=== PATIENT | male | born 1950 | race Caucasian/White ===

== ENCOUNTER 2017-01-04 16:22 | Emergency (ER) | payer MEDICAID ==
--- NOTE | 2017-01-04 17:14 | ED Physician Chart ---
Chief Complaint/HPI - Patient Information Date Seen:: 01/04/17 Time Seen:: 17:00 Chief Complaint:: right foot and right thigh lesions History of Present Illness:: Patient noted areas of redness on the right foot and the right posterior thigh 5 days ago. No chills or fever. Allergies:: Allergies Allergy/AdvReac Type Severity Reaction Status Date / Time Penicillins Allergy Verified 01/04/17 16:59 Vitals:: Vital Signs - 8 hr 01/04/17 16:52 Temp 98.5 F HR 65 RR 16 BP 114/78 O2 Sat % 98 Historian:: Patient Review:: Nurse's Note Reviewed Review of Systems - Review of Systems General/Constitutional: No fever, No chills Skin: Skin lesions Head: No headache Eyes: No loss of vision ENT: No earache Neck: No neck pain Cardio Vascular: No chest pain, No palpitations Pulmonary: No SOB GI: No nausea, No vomiting G/U: No dysuria Musculoskeletal: No bone or joint pain Endocrine: No polyuria Psychiatric: No prior psych history, No depression Hematopoietic: No bruising, No lymphadenopathy Allergic/Immuno: No urticaria Neurological: No syncope, No headache Past Medical History - Past Medical History Past Medical History: No significant medical hx Family History: Diabetes Melitus, Cancer, Other (grandson and granddaughter have asthma) Social History: Non Smoker, No Alcohol Surgical History: None Psychiatricy History: None Medication: Reviewed Physical Exam - Physical Examination General/Constitutional: Well-developed, well-nourished, Alert, No distress Head: Atraumatic Eyes: Lids, conjuctiva normal, PERRL Skin: No ecchymosis Other Skin comments:: 1 cm of erythema right foot just distal to lateral malleolus. 2 cm of erythema posterior right thigh ENMT: External ears, nose nl Neck: No nuchal rigidity Respiratory: Nl effort/Exclusion, Clear to Auscultation, No Wheeze/Rhonchi/Rales Cardio Vascular: RRR GI: No tenderness/rebounding/guarding, No organomegaly, No hernia : No CVA tenderness Extremities: Normal digits & nails Neuro/Psych: Alert/oriented Misc: Normal back ED Septic Shock - . Is Septic Shock (SBP<90, OR Lactate>4 mmol\L) present?: No - <6hrs of presentation: Vital Signs: Vital Signs - 8 hr 01/04/17 16:52 Temp 98.5 F HR 65 RR 16 BP 114/78 O2 Sat % 98 Reassessment (Disposition) - Reassessment Reassessment Condition:: Unchanged - Diagnosis Diagnosis:: Infected insect or spider bites right foot and right side - Aftercare/Follow up Instructions Medication Prescribed:: Prescription for Bactrim DS No. 20 to take one twice a day - Patient Disposition Discharge/Transfer:: Home Condition at Disposition:: Stable, Unchanged ED Discharge Plan - Patient Disposition Prescriptions: Sulfamethoxazole/TMP [Bactrim Ds] 1 tab PO BID #20 tab Instructions: Cellulitis, [id number] Additional Instructions: TOLERATED.
== END 2017-01-04 17:27 | disposition home or self-care (01) ==
LOC: ER 16:22
DX: T63.301A Toxic effect of unspecified spider venom, accidental (unintentional), initial encounter (principal); Z88.0 Allergy status to penicillin; Y92.89 Other specified places as the place of occurrence of the external cause
CPT/HCPCS: Z7502

== ENCOUNTER 2017-01-14 12:31 | Emergency (ER) | payer MEDICAID ==
--- NOTE | 2017-01-14 12:51 | ED Physician Chart ---
Chief Complaint/HPI - Patient Information Date Seen:: 01/14/17 Time Seen:: 12:40 Chief Complaint:: Redness in R forearm since last evening. History of Present Illness:: As above. No fever. Pt states that the affected area has been pruritc, and he has been scratching it. Taking po well without N/V/D. No lightheadedness or dyspnea. Pt does not recall any usual contact with any animals, plants, chemicals or potential allergens. Allergies:: Allergies Allergy/AdvReac Type Severity Reaction Status Date / Time Penicillins Allergy Verified 01/04/17 16:59 Vitals:: see Nurse Note. Historian:: Patient Family MD/PCP:: Edison Small. LMP:: N/A Review:: Nurse's Note Reviewed Review of Systems - Review of Systems General/Constitutional: No fever, No chills, No weight loss, No weakness, No edema, No loss of appetite Skin: Rash (see HPI.), No bruising Head: No headache, No light-headedness Eyes: No loss of vision, No pain ENT: No sore throat Neck: No neck pain, No swelling Cardio Vascular: No chest pain, No palpitations Pulmonary: No SOB, No cough, No wheezing GI: No nausea, No vomiting, No diarrhea, No pain Musculoskeletal: No bone or joint pain, No back pain, No muscle pain Endocrine: No polyuria, No polydipsia Psychiatric: No prior psych history Hematopoietic: No bruising, No lymphadenopathy Allergic/Immuno: Urticaria Neurological: No syncope, No focal symptoms, No weakness, No paresthesia, No headache, No dizziness, No confusion, No vertigo Past Medical History - Past Medical History Past Medical History: No significant medical hx Family History: Diabetes Melitus (mother), Cancer (mother) Social History: Non Smoker, No Alcohol, No Drug Use, , Other (lives with his .) Employment:: Retired Surgical History: other (R knee surgery about 32 y/a.) Psychiatricy History: None Medication: Reviewed Family Medical History - Family Member Mother Hx Family Cancer: No Hx Family Congestive Heart Failure: No Hx Family Hypertension: No Hx Family Diabetes: No Hx Family Seizures: No Hx Family Dementia: No Physical Exam - Physical Examination General/Constitutional: Awake, Well-developed, well-nourished, Alert, No distress, GCS 15, Non-toxic appearing, Ambulatory Other Gen/Cons comments:: Breathes comfortably Head: Atraumatic Eyes: Lids, conjuctiva normal, PERRL, EOMI Skin: No ecchymosis, Well hydrated, No lymphadenopathy Other Skin comments:: R forearm mid dorsal aspect has an area of about 5 x 8 cm patchy erythema. No open wound, red streaking, crepitus or swelling. No unusual warmth. RUE has FROM of all joints. No detectable motor/sensory/vascular deficit. Good distal pulse. ENMT: External ears, nose nl, Nasal exam nl, Oropharynx nl Neck: Nontender, Full ROM w/o pain, No nuchal rigidity, No mass, No stridor Respiratory: Nl effort/Exclusion, Clear to Auscultation, No Wheeze/Rhonchi/Rales Cardio Vascular: RRR, No murmur, gallop, rubs GI: No tenderness/rebounding/guarding, No organomegaly, Normal BS's, Nondistended Other GI comments:: Abdomen is soft. Other Extremities comments:: See Skin exam above. Neuro/Psych: Alert/oriented (oriented x 3), Judgement/insight normal, Mood normal, Normal gait, No focal deficits ED Septic Shock - . Is Septic Shock (SBP<90, OR Lactate>4 mmol\L) present?: No Reassessment (Disposition) - Reassessment Reassessment:: 1300 Pt remains stable. Pt requests to go home now. Aftercare instructions have been given. Reassessment Condition:: Improved - Diagnosis Diagnosis:: Probable early cellulitis in R forearm, consider also local allergic reaction. Stable. - Aftercare/Follow up Instructions Aftercare/Follow-Up Instructions:: Refer to Discharge Instructions Notes:: Continue present care. Benadryl 50 mg po q6h as directed. Drowsiness precautions given with the use of Benadryl. Avoid scratching the affected skin area. Increase oral fluid. F/U with PCP at [facility] in one day for recheck. Return to ER immediately if condition worsens or if any further questions/problems. Medication Prescribed:: Bactrim DS one tab po q12h for 10 days. D-20 R-0 - Patient Disposition Discharge/Transfer:: Home Time:: 13:10 Condition at Disposition:: Stable, Improved
== END 2017-01-14 13:36 | disposition home or self-care (01) ==
LOC: ER 12:31
DX: T78.40XA Allergy, unspecified, initial encounter (principal); X58.XXXA Exposure to other specified factors, initial encounter
CPT/HCPCS: Z7502

== ENCOUNTER 2017-05-10 12:25 | Emergency (ER) | payer MEDICAID ==
--- NOTE | 2017-05-10 13:23 | ED Physician Chart ---
ED Chief Complaint/HPI - Patient Information Date Seen:: 05/10/17 Time Seen:: 12:50 Chief Complaint:: dizziness History of Present Illness:: Patient had an episode of lightheadedness about one and a half hours ago which lasted one to 2 minutes. Then patient had left upper quadrant and left flank cramping which has subsided. Patient has had a cough and congestion for 1 week. Allergies:: Allergies Allergy/AdvReac Type Severity Reaction Status Date / Time Penicillins Allergy Verified 01/04/17 16:59 Vitals:: Vital Signs - 8 hr 05/10/17 13:06 Temp 97.7 F HR 71 RR 16 BP 113/60 O2 Sat % 97 Historian:: Patient Review:: Nurse's Note Reviewed ED Review of Systems - Review of Systems General/Constitutional: No fever, No chills Skin: No skin lesions Head: No headache Eyes: No loss of vision ENT: No earache Neck: No neck pain, No swelling Cardio Vascular: No chest pain, No palpitations Pulmonary: No SOB GI: No nausea, No vomiting G/U: No dysuria Musculoskeletal: No bone or joint pain Endocrine: No polyuria Psychiatric: No prior psych history Hematopoietic: No bruising Allergic/Immuno: No urticaria Neurological: No syncope ED Past Medical History - Past Medical History Past Medical History: Asthma/COPD Family History: Diabetes Melitus Social History: Non Smoker Surgical History: other (right knee) Psychiatricy History: None ED Physical Exam - Physical Examination General/Constitutional: Well-developed, well-nourished Head: Atraumatic Eyes: Lids, conjuctiva normal, PERRL Skin: Nl inspection, No rash, No skin lesions, No ecchymosis ENMT: External ears, nose nl, TM canals nl, Nasal exam nl, Lips, teeth, gums nl , Oropharynx nl Neck: No nuchal rigidity Respiratory: Nl effort/Exclusion, Clear to Auscultation, No Wheeze/Rhonchi/Rales Cardio Vascular: RRR, No murmur, gallop, rubs GI: No tenderness/rebounding/guarding, No organomegaly, No hernia, Normal BS's : No CVA tenderness Extremities: Normal digits & nails Neuro/Psych: Alert/oriented, No focal deficits ED Labs/Radiology/EKG Results - Lab Results Results: Laboratory Results - last 24 hr 05/10/17 13:26 WBC 6.6 RBC 4.56 Hgb 14.0 Hct 41.7 MCV 91.4 MCH 30.8 H MCHC Differential 33.7 RDW 13.3 Plt Count 226 MPV 6.9 Neutrophils % 67.6 Lymphocytes % 18.9 L Monocytes % 7.6 Eosinophils % 5.8 H Basophils % 0.1 Laboratory Results - last 24 hr 05/10/17 05/10/17 13:26 13:26 WBC 6.6 RBC 4.56 Hgb 14.0 Hct 41.7 MCV 91.4 MCH 30.8 H MCHC Differential 33.7 RDW 13.3 Plt Count 226 MPV 6.9 Neutrophils % 67.6 Lymphocytes % 18.9 L Monocytes % 7.6 Eosinophils % 5.8 H Basophils % 0.1 Sodium 132 L Potassium 3.8 Chloride 100 Carbon Dioxide 24.6 Anion Gap 11.2 BUN 13 Creatinine 0.7 Est GFR ( Amer) > 60.0 Est GFR (Non-Af Amer) > 60.0 BUN/Creatinine Ratio 18.6 Glucose 103 Calcium 8.9 Magnesium 2.0 ED Assessment - Assessment General Assessment: At 1552 patient felt improved ED Septic Shock - . Is Septic Shock (SBP<90, OR Lactate>4 mmol\L) present?: No - <6hrs of presentation: Vital Signs: Vital Signs - 8 hr 05/10/17 13:06 Temp 97.7 F HR 71 RR 16 BP 113/60 O2 Sat % 97 ED Reassessment (Disposition) - Reassessment Reassessment Condition:: Improved - Diagnosis Diagnosis:: Acute viral syndrome - Aftercare/Follow up Instructions Aftercare/Follow-Up Instructions:: Refer to Discharge Instructions - Patient Disposition Discharge/Transfer:: Home Condition at Disposition:: Stable, Improved
[2017-05-10 13:34] LABS: % BASOPHILS 0.1 % (0.0-2.0); % EOSINOPHILS 5.8 % (0.0-5.0); % LYMPHOCYTES 18.9 % (20.0-50.0); % MONOCYTES 7.6 % (2.0-10.0); % NEUTROPHILS 67.6 % (40.0-80.0); EOSINOPHILE ABSOLUTE 0.4 Th/cmm (0.1-0.4); HEMATOCRIT 41.7 % (41.0-60); LYMPHOCYTE ABSOLUTE 1.2 Th/cmm (1.5-3.0); MEAN CELL VOLUME 91.4 fl (80-99); MEAN CORPUSCULAR HEMOGLOBIN 30.8 pg (26.0-30.0); MEAN CORPUSCULAR HGB CONC 33.7 pg (28.0-36.0); MEAN PLATELET VOLUME 6.9 fl; MONOCYTE ABSOLUTE 0.5 Th/cmm (0.3-1.0); NEUTROPHILE ABSOLUTE 4.5 Th/cmm (1.8-8.0); PLATELET COUNT 226 Th/cmm (150-400); RED BLOOD COUNT 4.56 Mil/cmm (4.30-5.70); RED CELL DISTRIBUTION WIDTH 13.3 % (11.5-20.0); WHITE BLOOD COUNT 6.6 Th/cmm (4.8-10.8)
[2017-05-10 14:11] LABS: ANION GAP 11.2 (7.0-16.0); BUN - UREA NITROGEN 13 mg/dL (7-25); CALCIUM SERUM 8.9 mg/dL (8.6-10.3); CARBON DIOXIDE 24.6 mEq/L (21.0-31.0); CHLORIDE 100 mEq/L (98-107); CREATININE - SERUM 0.7 mg/dL (0.7-1.3); GFR AFRICAN-AMERICAN > 60.0 ml/min (>90); GFR NON AFRICAN-AMERICAN > 60.0 ml/min; GLUCOSE 103 mg/dL (70-105); POTASSIUM SERUM 3.8 mEq/L (3.5-5.1); SODIUM SERUM 132 mEq/L (136-145)
[2017-05-10 15:29] LABS: URINE MICROSCOPIC INDICATED? YES; URINE SOURCE RANDOM
[2017-05-10 15:31] LABS: URINE BILIRUBIN NEGATIVE (NEGATIVE); URINE BLOOD NEGATIVE (NEGATIVE); URINE GLUCOSE (UA) NEGATIVE (NEGATIVE); URINE KETONE NEGATIVE (NEGATIVE); URINE LEUKOCYTE ESTERASE NEGATIVE (NEGATIVE); URINE NITRATE NEGATIVE (NEGATIVE); URINE PROTEIN NEGATIVE (NEGATIVE); URINE UROBILINOGEN 0.2 E.U./dL (0.2 - 1.0)
[2017-05-10 15:45] LABS: URINE CLARITY CLEAR (CLEAR); URINE COLOR YELLOW
[2017-05-10 15:47] LABS: URINE BACTERIA NONE SEEN /hpf (NONE SEEN); URINE EPITHELIAL CELLS NONE SEEN /lpf (FEW); URINE RBC NONE SEEN /hpf (0-5); URINE WBC NONE SEEN /hpf (0-5)
== END 2017-05-10 15:45 | disposition left against medical advice (07) ==
LOC: ER 12:25
DX: B34.9 Viral infection, unspecified (principal); J44.9 Chronic obstructive pulmonary disease, unspecified; J45.909 Unspecified asthma, uncomplicated; Z88.0 Allergy status to penicillin
CPT/HCPCS: 36415-UA; 80048-TC; 81001-TC; 83735-TC; 85025-TC; Z7502

== ENCOUNTER 2017-11-13 15:01 | Emergency (ER) | payer MEDICARE, MEDICAID | END 2017-11-13 15:40 | disposition home or self-care (01) | LOC: ER 15:01 | DX: H57.11 Ocular pain, right eye (principal); H57.8 Other specified disorders of eye and adnexa; Z88.0 Allergy status to penicillin; Z87.891 Personal history of nicotine dependence | CPT/HCPCS: Z7502 ==

== ENCOUNTER 2018-02-28 10:50 | Emergency (ER) | payer MEDICARE, MEDICAID ==
--- NOTE | 2018-02-28 11:54 | ED Physician Chart ---
ED Chief Complaint/HPI - Patient Information Date Seen:: 02/28/18 Time Seen:: 11:40 Chief Complaint:: left knee pain History of Present Illness:: 6 days ago patient slipped on a incline in the sidewalk falling onto an twisting his left knee at the same time. He complains of diffuse left knee pain most severe posteriorly. Allergies:: Allergies Allergy/AdvReac Type Severity Reaction Status Date / Time Penicillins Allergy Verified 01/04/17 16:59 Vitals:: Vital Signs - 8 hr 02/28/18 11:23 Temp 97.8 F HR 74 RR 16 BP 116/65 O2 Sat % 98 Historian:: Patient Review:: Nurse's Note Reviewed ED Review of Systems - Review of Systems General/Constitutional: No fever, No chills Skin: No skin lesions Head: No headache Eyes: No loss of vision ENT: No earache Neck: No neck pain, No swelling Cardio Vascular: No chest pain, No palpitations Pulmonary: No SOB GI: No nausea, No vomiting, No diarrhea G/U: No dysuria Musculoskeletal: Bone or joint pain Endocrine: No polyuria, No polydipsia Psychiatric: No prior psych history, No depression Hematopoietic: No bruising, No lymphadenopathy Allergic/Immuno: No urticaria, No angioedema Neurological: No syncope, No focal symptoms ED Past Medical History - Past Medical History Past Medical History: No significant medical hx Family History: Cancer Social History: Non Smoker, No Alcohol Surgical History: other (right knee surgery 30 years ago) Psychiatricy History: None Medication: None Family Medical History - Family Member Mother History Unknown: Yes Ethnicity: Unknown Living Status: Unknown ED Physical Exam - Physical Examination General/Constitutional: Awake, Well-developed, well-nourished, Alert, No distress, GCS 15, Non-toxic appearing, Ambulatory Head: Atraumatic Eyes: Lids, conjuctiva normal, PERRL, EOMI Skin: Nl inspection, No rash, No skin lesions, No ecchymosis, Well hydrated, No lymphadenopathy ENMT: External ears, nose nl, Nasal exam nl, Lips, teeth, gums nl Neck: Nontender, Full ROM w/o pain, No JVD, No nuchal rigidity, No bruit, No mass, No stridor Respiratory: Nl effort/Exclusion, Clear to Auscultation, No Wheeze/Rhonchi/Rales Cardio Vascular: RRR, No murmur, gallop, rubs, NL S1 S2 GI: No tenderness/rebounding/guarding, No organomegaly, No hernia, Normal BS's, Nondistended, No mass/bruits, No McBurney tenderness : No CVA tenderness Other Extremities comments:: Left knee: About 15 of flexion only; posterior tenderness; collateral and cruciate ligaments stable Neuro/Psych: Alert/oriented, DTR's symmetric, Normal sensory exam, Normal motor strength, Judgement/insight normal, Mood normal, Normal gait, No focal deficits Misc: Normal back, No paraspinal tenderness ED Labs/Radiology/EKG Results - Radiology Results Results: Left knee x-ray normal ED Assessment - Assessment General Assessment: Patient probably has a meniscus tear of the left knee which would not show on x- ray. Informed patient that if pain continues he should be referred to an orthopedist who would probably order an MRI. ED Septic Shock - . Is Septic Shock (SBP<90, OR Lactate>4 mmol\L) present?: No - <6hrs of presentation: Vital Signs: Vital Signs - 8 hr 02/28/18 11:23 Temp 97.8 F HR 74 RR 16 BP 116/65 O2 Sat % 98 ED Reassessment (Disposition) - Reassessment Reassessment Condition:: Unchanged - Diagnosis Diagnosis:: Left knee sprain - Aftercare/Follow up Instructions Aftercare/Follow-Up Instructions:: Refer to Discharge Instructions - Patient Disposition Discharge/Transfer:: Home Condition at Disposition:: Stable, Unchanged
--- NOTE | 2018-02-28 12:47 | Diagnostic Imaging Report ---
Left knee 3 views Indication: Trauma Comparison: none Findings: Mild degenerative changes are noted including mild narrowing of the medial and lateral knee compartments. No evidence of an acute fracture or joint effusion. Distal quadriceps spurring is noted. Impression: No evidence of an acute fracture. Mild degenerative changes. In the setting of trauma, if clinical symptoms persist and there is continued concern for an occult fracture, follow up exams in 5-7 days is suggested.
== END 2018-02-28 12:38 | disposition home or self-care (01) ==
LOC: ER 10:50
DX: S83.92XA Sprain of unspecified site of left knee, initial encounter (principal); Z88.0 Allergy status to penicillin; X50.1XXA Overexertion from prolonged static or awkward postures, initial encounter; Y93.89 Activity, other specified; Y92.480 Sidewalk as the place of occurrence of the external cause; Y99.8 Other external cause status
CPT/HCPCS: 73560-TC-LT; Z7502

== ENCOUNTER 2018-05-01 14:35 | Emergency (ER) | payer MEDICARE, MEDICAID ==
[2018-05-01] MEDS ORDERED: Aspirin 81mg Chewable Tab PO STA (14:53)
[2018-05-01 15:11] LABS: % BASOPHILS 1.1 % (0.0-2.0); % EOSINOPHILS 3.1 % (0.0-5.0); % LYMPHOCYTES 30.9 % (20.0-50.0); % MONOCYTES 8.8 % (2.0-10.0); % NEUTROPHILS 56.1 % (40.0-80.0); BASOPHILE ABSOLUTE 0.1 Th/cumm (0-0.2); EOSINOPHILE ABSOLUTE 0.2 Th/cmm (0.1-0.4); HEMATOCRIT 43.4 % (41.0-60); HEMOGLOBIN 14.4 gm/dL (12-16); LYMPHOCYTE ABSOLUTE 1.8 Th/cmm (1.5-3.0); MEAN CELL VOLUME 91.1 fl (80-99); MEAN CORPUSCULAR HEMOGLOBIN 30.2 pg (27.0-31.0); MEAN CORPUSCULAR HGB CONC 33.1 pg (28.0-36.0); MEAN PLATELET VOLUME 7.1 fl; MONOCYTE ABSOLUTE 0.5 Th/cmm (0.3-1.0); NEUTROPHILE ABSOLUTE 3.1 Th/cmm (1.8-8.0); PLATELET COUNT 233 Th/cmm (150-400); RED BLOOD COUNT 4.77 Mil/cmm (3.80-5.80); RED CELL DISTRIBUTION WIDTH 13.2 % (11.5-20.0); WHITE BLOOD COUNT 5.7 Th/cmm (4.8-10.8)
[2018-05-01] MEDS ORDERED: Aspirin 81mg Chewable Tab ONE (15:22)
[2018-05-01 15:23] LABS: INR 0.99 (0.5-1.4); PROTHROMBIN TIME (TEST) 10.3 SECONDS (9.5-11.5)
[2018-05-01 15:27] LABS: ALB/GLOB RATIO 1.4 (1.0-1.8); ALBUMIN 4.3 gm/dL (4.2-5.5); ALKALINE PHOSPHATASE 91 U/L (34-104); ANION GAP 14.7 (7.0-16.0); BILIRUBIN,TOTAL 0.6 mg/dL (0.3-1.0); BUN - UREA NITROGEN 15 mg/dL (7-25); CALCIUM SERUM 9.3 mg/dL (8.6-10.3); CARBON DIOXIDE 24.8 mEq/L (21.0-31.0); CHLORIDE 99 mEq/L (98-107); CHOLESTEROL 204 mg/dL (<200); CREATININE - SERUM 0.8 mg/dL (0.7-1.3); CREATININE KINASE 139 U/L (30-223); GFR AFRICAN-AMERICAN > 60.0 ml/min (>90); GFR NON AFRICAN-AMERICAN > 60.0 ml/min; GLUCOSE 142 mg/dL (70-105); HDL -HIGH DENSITY LIPOPROTEIN 61 mg/dL (23-92); POTASSIUM SERUM 3.5 mEq/L (3.5-5.1); SGOT 23 U/L (13-39); SGPT/ALT 20 U/L (7-52); SODIUM SERUM 135 mEq/L (136-145); TOTAL PROTEIN,SERUM 7.3 gm/dL (6.0-8.3); TRIGLYCERIDES 59 mg/dL (<150)
[2018-05-01 15:52] LABS: DDIMER QUANT < 100 ng/mL (100-400)
--- NOTE | 2018-05-01 16:13 | ED Physician Chart ---
ED Chief Complaint/HPI - Patient Information Date Seen:: 05/01/18 Time Seen:: 14:40 Chief Complaint:: Sore Throat History of Present Illness:: onset x 2 days of S/T and fever with onset x one hour of a short episode of sharp, pleuritic type C/P cough, and Dyspnea after an exposure to inhaled bleach chemicals which resolved upon ER arrival; pt denies trauma, LOC, ALOC, AMS, H/As, visual or gait changes, neck pain, weakness, dizziness, paresthesias , vertigo, abd. 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 Allergies:: Allergies Allergy/AdvReac Type Severity Reaction Status Date / Time Penicillins Allergy Verified 01/04/17 16:59 Vitals:: Vital Signs - 8 hr 05/01/18 14:41 Temp 99.2 F HR 67 RR 18 BP 120/58 O2 Sat % 97 Historian:: Patient Review:: Nurse's Note Reviewed, Old Chart Reviewed ED Review of Systems - Review of Systems General/Constitutional: Fever, No chills, No weight loss, No weakness, No diaphoresis, No edema, No loss of appetite Skin: No skin lesions, No rash, No bruising Head: No headache, No light-headedness Eyes: No loss of vision, No pain, No diplopia ENT: No earache, No nasal drainage, Sore throat, No tinnitus Neck: No neck pain, No swelling, No thyromegaly, No stiffness, No mass noted Cardio Vascular: Chest pain, No palpitations, No PND, No orthopnea, No edema Pulmonary: SOB, Cough, No sputum, No wheezing GI: No nausea, No vomiting, No diarrhea, No pain, No melena, No hematochezia, No constipation, No hematemesis G/U: No dysuria, No frequency, No hematuria, No nacturia Musculoskeletal: No bone or joint pain, No back pain, No muscle pain Endocrine: No polyuria, No polydipsia Psychiatric: No prior psych history, No depression, No anxiety, No suicidal ideation, No homicidal ideation, No auditory hallucination, No visual hallucination Hematopoietic: No bruising, No lymphadenopathy Allergic/Immuno: No urticaria, No angioedema Neurological: No syncope, No focal symptoms, No weakness, No paresthesia, No headache, No seizure, Dizziness, No confusion, Vertigo ED Past Medical History - Past Medical History Obtainable: Yes Past Medical History: Dyslipidemia Family History: HTN Social History: Non Smoker, No Alcohol, No Drug Use, Surgical History: None Psychiatricy History: None Medication: Reviewed Family Medical History - Family Member Mother History Unknown: Yes Ethnicity: Living Status: Unknown Hx Family Cancer: Yes ED Physical Exam - Physical Examination General/Constitutional: Awake, Well-developed, well-nourished, Alert, No distress, GCS 15, Non-toxic appearing, Ambulatory Head: Atraumatic Eyes: Lids, conjuctiva normal, PERRL, EOMI Skin: Nl inspection, No rash, No skin lesions, No ecchymosis, Well hydrated, No lymphadenopathy ENMT: External ears, nose nl, TM canals nl, Nasal exam nl, Lips, teeth, gums nl , Tonsils nl Other ENMT comments:: Pharynx: Injected; no exudates; no abscesses; no FBs; no airway obstruction Neck: Nontender, Full ROM w/o pain, No JVD, No nuchal rigidity, No bruit, No mass, No stridor Other Neck comments:: supple; no meningeal signs; no cervical tenderness; no bruits Respiratory: Nl effort/Exclusion, Clear to Auscultation, No Wheeze/Rhonchi/Rales Cardio Vascular: RRR, No murmur, gallop, rubs, NL S1 S2, Carotid/Femoral/Distal pulses equal bilaterally GI: No tenderness/rebounding/guarding, No organomegaly, No hernia, Normal BS's, Nondistended, No mass/bruits, No McBurney tenderness, Rectum exam nl Other GI comments:: no pulsatile masses : No CVA tenderness Extremities: No tenderness or effusion, Full ROM, normal strength in all extremities, No edema, Normal digits & nails Neuro/Psych: Alert/oriented, DTR's symmetric, Normal sensory exam, Normal motor strength, Judgement/insight normal, Mood normal, Normal gait, No focal deficits Other Neuro/Psych comments:: no focal signs Misc: Normal back, No paraspinal tenderness ED Labs/Radiology/EKG Results - Lab Results Results: Laboratory Tests 05/01/18 05/01/18 05/01/18 15:03 15:03 15:03 WBC 5.7 RBC 4.77 Hgb 14.4 Hct 43.4 MCV 91.1 MCH 30.2 MCHC Differential 33.1 RDW 13.2 Plt Count 233 MPV 7.1 Neutrophils % 56.1 Lymphocytes % 30.9 Monocytes % 8.8 Eosinophils % 3.1 Basophils % 1.1 PT 10.3 INR 0.99 D-Dimer < 100 L Sodium 135 L Potassium 3.5 Chloride 99 Carbon Dioxide 24.8 Anion Gap 14.7 BUN 15 Creatinine 0.8 Est GFR ( Amer) > 60.0 Est GFR (Non-Af Amer) > 60.0 BUN/Creatinine Ratio 18.8 Glucose 142 H Calcium 9.3 Total Bilirubin 0.6 AST 23 ALT 20 Alkaline Phosphatase 91 Creatine Kinase 139 Troponin I B-Natriuretic Peptide Total Protein 7.3 Albumin 4.3 Globulin 3.0 Albumin/Globulin Ratio 1.4 Triglycerides 59 Cholesterol 204 H LDL Cholesterol Direct 138 HDL Cholesterol 61 05/01/18 05/01/18 15:03 15:03 WBC RBC Hgb Hct MCV MCH MCHC Differential RDW Plt Count MPV Neutrophils % Lymphocytes % Monocytes % Eosinophils % Basophils % PT INR D-Dimer Sodium Potassium Chloride Carbon Dioxide Anion Gap BUN Creatinine Est GFR ( Amer) Est GFR (Non-Af Amer) BUN/Creatinine Ratio Glucose Calcium Total Bilirubin AST ALT Alkaline Phosphatase Creatine Kinase Troponin I < 0.01 L B-Natriuretic Peptide 13.4 Total Protein Albumin Globulin Albumin/Globulin Ratio Triglycerides Cholesterol LDL Cholesterol Direct HDL Cholesterol Comments:: Reviewed - Radiology Results Comments:: NAD - EKG Interpretations EKG Time:: 15:59 Rate & Rhythm: 62; NSR Comments:: non-specific st-t changes ED Septic Shock - . Is Septic Shock (SBP<90, OR Lactate>4 mmol\L) present?: No - <6hrs of presentation: Vital Signs: Vital Signs - 8 hr 05/01/18 14:41 Temp 99.2 F HR 67 RR 18 BP 120/58 O2 Sat % 97 ED Reassessment (Disposition) - Reassessment Reassessment:: pt chose to sign out AMA; pt tolerated po fluids well in ER; pt is asymptomatic upon discharge/AMA Reassessment Condition:: Improved - Diagnosis Diagnosis:: Dx: Hyponatremia; Hyperglycemia; Hyperlipidemia; Sore Throat; Pharyngitis; Cough ; Bronchitis; Fever; URI; Chemical Inhalation Exposure; Dehydration; Chest Pain ; Angina Pectoris; Pleuritic Chest Pain; Atypical Chest Pain; Dyspnea - Aftercare/Follow up Instructions Aftercare/Follow-Up Instructions:: Counseled pt regarding lab results/diagnosis & need follow up, Refer to Discharge Instructions, Counseled pt & family regarding lab results/diagnosis & need follow up Medication Prescribed:: Rx: Azithromycin/ Z-Pack (#6): take as prescribed; Tylenol 500mg po qid prn fever/pain; Salt Water Gargles; Fresh Air; Fluids - Patient Disposition Discharge/Transfer:: Against Medical Advice Condition at Disposition:: Stable, Improved (X-Rays Instructions; RTER prn if existing s/s reoccur and/or get worse and/or any other new s/s occur; ACIs given for all above Dx; Refer to Automatic Pattern Edger/Non Morse Intercept Technician/ENT Specialist/ Beach Attendant PRETTY; F/U with PMD Today or prn; RTER prn if concerned)
--- NOTE | 2018-05-02 09:08 | Diagnostic Imaging Report ---
Portable chest x-ray HISTORY: Pain The heart size is normal. Faint nonspecific interstitial changes noted in the right upper lobe which appear chronic. No other focal processes. No hilar or mediastinal abnormalities. IMPRESSION: 1. No definite acute abnormalities
== END 2018-05-01 16:56 | disposition left against medical advice (07) ==
LOC: ER 14:35
DX: J40 Bronchitis, not specified as acute or chronic (principal); J06.9 Acute upper respiratory infection, unspecified; I20.9 Angina pectoris, unspecified; E87.1 Hypo-osmolality and hyponatremia; E86.0 Dehydration; E78.5 Hyperlipidemia, unspecified; R06.00 Dyspnea, unspecified; Z77.098 Contact with and (suspected) exposure to other hazardous, chiefly nonmedicinal, chemicals; Z88.0 Allergy status to penicillin
CPT/HCPCS: 36415-UA; 71045-TC; 80053-TC; 80061-TC; 82550-TC; 83880-TC; 84484-TC; 85025-TC; 85379-TC; 85610-TC; 93005; Z7502; Z7610

== ENCOUNTER 2018-12-21 10:06 | Inpatient (IN) | payer MEDICARE, MEDICAID ==
[2018-12-21 10:50] LABS: HEMATOCRIT 43.7 % (41.0-60); HEMOGLOBIN 14.3 gm/dL (12-16); MEAN CELL VOLUME 92.9 fl (80-99); MEAN CORPUSCULAR HEMOGLOBIN 30.4 pg (27.0-31.0); MEAN CORPUSCULAR HGB CONC 32.7 pg (28.0-36.0); PLATELET COUNT 202 Th/cmm (150-400); RED CELL DISTRIBUTION WIDTH 13.5 % (11.5-20.0)
[2018-12-21 11:02] LABS: ALB/GLOB RATIO 1.5 (1.0-1.8); ALBUMIN 4.4 gm/dL (4.2-5.5); ALKALINE PHOSPHATASE 90 U/L (34-104); ANION GAP 9.7 (7.0-16.0); BILIRUBIN,TOTAL 0.6 mg/dL (0.3-1.0); BUN - UREA NITROGEN 14 mg/dL (7-25); CALCIUM SERUM 9.3 mg/dL (8.6-10.3); CHLORIDE 96 mEq/L (98-107); CREATININE - SERUM 0.8 mg/dL (0.7-1.3); GFR AFRICAN-AMERICAN > 60.0 ml/min (>90); GFR NON AFRICAN-AMERICAN > 60.0 ml/min; GLUCOSE 101 mg/dL (70-105); POTASSIUM SERUM 3.7 mEq/L (3.5-5.1); SGOT 24 U/L (13-39); SGPT/ALT 22 U/L (7-52); SODIUM SERUM 130 mEq/L (136-145); TOTAL PROTEIN,SERUM 7.3 gm/dL (6.0-8.3)
--- NOTE | 2018-12-21 11:12 | ED Physician Chart ---
ED Chief Complaint/HPI - Patient Information Date Seen:: 12/21/18 Time Seen:: 10:25 Chief Complaint:: chest tightness History of Present Illness:: this is a 68 yo male with dizziness, right arm numbness, chills and light headed within the last few hours. he denies nausea, vomiting and diarrhea. he admits that he has been congested in the last few days. he admits to chest tightness in the center but non radiating. there some tightness but no pain. he denies, smoking and drinking. he stopped working because of stressful conditions. Allergies:: Allergies Allergy/AdvReac Type Severity Reaction Status Date / Time Penicillins Allergy Verified 01/04/17 16:59 Vitals:: Vital Signs - 8 hr 12/21/18 10:17 Temp 97.5 F HR 55 RR 17 BP 146/64 O2 Sat % 98 Historian:: Patient Review:: Nurse's Note Reviewed, Old Chart Reviewed ED Review of Systems - Review of Systems General/Constitutional: No fever, Chills, No weight loss, No weakness, No diaphoresis, No edema, No loss of appetite Skin: No skin lesions, No rash, No bruising Head: No headache, Light headed Eyes: No loss of vision, No pain, No diplopia ENT: No earache, No nasal drainage, No sore throat, No tinnitus Neck: No neck pain, No swelling, No thyromegaly, No stiffness, No mass noted Cardio Vascular: Chest pain, No palpitations, No PND, No orthopnea, No edema Pulmonary: No SOB, No cough, No sputum, No wheezing GI: No nausea, No vomiting, No diarrhea, No pain, No melena, No hematochezia, No constipation, No hematemesis G/U: No dysuria, No frequency, No hematuria Musculoskeletal: No bone or joint pain, No back pain, No muscle pain Endocrine: No polyuria, No polydipsia Psychiatric: No prior psych history, No depression, No anxiety, No suicidal ideation Hematopoietic: No bruising, No lymphadenopathy Allergic/Immuno: No urticaria, No angioedema Neurological: No syncope, No focal symptoms, No weakness, No paresthesia, No headache, No seizure, Dizziness, No confusion, No vertigo ED Past Medical History - Past Medical History Obtainable: Yes Past Medical History: Dyslipidemia, Other (right leg staff infection admitted to [facility]) Family History: None Social History: Non Smoker, No Alcohol, No Drug Use, Surgical History: other (right knee) Psychiatricy History: None Medication: Reviewed Family Medical History - Family Member Mother History Unknown: Yes Ethnicity: Living Status: Unknown Hx Family Cancer: No Hx Family Hypertension: No Hx Family Diabetes: No Hx Family Seizures: No Hx Family AIDS: No Hx Family HIV: No Hx Family COPD: No Hx Family Psychiatric Problems: No ED Physical Exam - Physical Examination General/Constitutional: Awake, Well-developed, well-nourished, Alert, No distress, GCS 15, Non-toxic appearing, Ambulatory Head: Atraumatic Eyes: Lids, conjuctiva normal, PERRL, EOMI Skin: Nl inspection, No rash, No skin lesions, No ecchymosis, Well hydrated, No lymphadenopathy ENMT: External ears, nose nl, Nasal exam nl, Lips, teeth, gums nl Neck: Nontender, Full ROM w/o pain, No JVD, No nuchal rigidity, No bruit, No mass, No stridor Respiratory: Nl effort/Exclusion, Clear to Auscultation, No Wheeze/Rhonchi/Rales Cardio Vascular: RRR, No murmur, gallop, rubs, NL S1 S2 GI: No tenderness/rebounding/guarding, No organomegaly, No hernia, Normal BS's, Nondistended, No mass/bruits, No McBurney tenderness : No CVA tenderness Extremities: No tenderness or effusion, Full ROM, normal strength in all extremities, No edema, Normal digits & nails Neuro/Psych: Alert/oriented, DTR's symmetric, Normal sensory exam, Normal motor strength, Judgement/insight normal, Mood normal, Normal gait, No focal deficits Misc: Normal back, No paraspinal tenderness ED Labs/Radiology/EKG Results - Lab Results Results: Abnormal Lab Results 12/21/18 12/21/18 12/21/18 10:30 10:30 10:30 WBC 4.0 L RBC 4.70 Hgb 14.3 Hct 43.7 MCV 92.9 MCH 30.4 MCHC Differential 32.7 RDW 13.5 Plt Count 202 MPV 7.2 Add Manual Diff YES Neutrophils % CONSTRUCTION SITE MANAGER Band Neutrophils % 0 Lymphocytes % CONSTRUCTION SITE MANAGER Monocytes % CONSTRUCTION SITE MANAGER Eosinophils % CONSTRUCTION SITE MANAGER Basophils % CONSTRUCTION SITE MANAGER Neutrophils (Manual) 50 Lymphocytes 35 Monocytes 7 Eosinophils 8 H Basophils 0 Platelet Estimate ADEQUATE PT 10.0 INR 0.96 PTT (Actin FS) 27.0 Sodium 130 L Potassium 3.7 Chloride 96 L Carbon Dioxide 28.0 Anion Gap 9.7 BUN 14 Creatinine 0.8 Est GFR ( Amer) > 60.0 Est GFR (Non-Af Amer) > 60.0 BUN/Creatinine Ratio 17.5 Glucose 101 Whole Bld Lactic Acid Calcium 9.3 Total Bilirubin 0.6 AST 24 ALT 22 Alkaline Phosphatase 90 Troponin I Total Protein 7.3 Albumin 4.4 Globulin 2.9 Albumin/Globulin Ratio 1.5 Triglycerides Cholesterol LDL Cholesterol Direct HDL Cholesterol TSH Urine Source Urine Color Urine Clarity Urine pH Ur Specific [place] Urine Protein Urine Glucose (UA) Urine Ketones Urine Blood Urine Nitrate Urine Bilirubin Urine Urobilinogen Ur Leukocyte Esterase Urine RBC Urine WBC Ur Epithelial Cells Urine Bacteria 12/21/18 12/21/18 12/21/18 10:30 10:30 10:30 WBC RBC Hgb Hct MCV MCH MCHC Differential RDW Plt Count MPV Add Manual Diff Neutrophils % Band Neutrophils % Lymphocytes % Monocytes % Eosinophils % Basophils % Neutrophils (Manual) Lymphocytes Monocytes Eosinophils Basophils Platelet Estimate PT INR PTT (Actin FS) Sodium Potassium Chloride Carbon Dioxide Anion Gap BUN Creatinine Est GFR ( Amer) Est GFR (Non-Af Amer) BUN/Creatinine Ratio Glucose Whole Bld Lactic Acid 1.29 Calcium Total Bilirubin AST ALT Alkaline Phosphatase Troponin I < 0.01 L Total Protein Albumin Globulin Albumin/Globulin Ratio Triglycerides Cholesterol LDL Cholesterol Direct HDL Cholesterol TSH 3.83 Urine Source Urine Color Urine Clarity Urine pH Ur Specific [place] Urine Protein Urine Glucose (UA) Urine Ketones Urine Blood Urine Nitrate Urine Bilirubin Urine Urobilinogen Ur Leukocyte Esterase Urine RBC Urine WBC Ur Epithelial Cells Urine Bacteria 12/21/18 12/21/18 10:30 11:25 WBC RBC Hgb Hct MCV MCH MCHC Differential RDW Plt Count MPV Add Manual Diff Neutrophils % Band Neutrophils % Lymphocytes % Monocytes % Eosinophils % Basophils % Neutrophils (Manual) Lymphocytes Monocytes Eosinophils Basophils Platelet Estimate PT INR PTT (Actin FS) Sodium Potassium Chloride Carbon Dioxide Anion Gap BUN Creatinine Est GFR ( Amer) Est GFR (Non-Af Amer) BUN/Creatinine Ratio Glucose Whole Bld Lactic Acid Calcium Total Bilirubin AST ALT Alkaline Phosphatase Troponin I Total Protein Albumin Globulin Albumin/Globulin Ratio Triglycerides 89 Cholesterol 194 LDL Cholesterol Direct 124 HDL Cholesterol 59 TSH Urine Source CLEAN C Urine Color YELLOW Urine Clarity CLEAR Urine pH 6.5 Ur Specific [place] <= 1.005 Urine Protein NEGATIVE Urine Glucose (UA) NEGATIVE Urine Ketones NEGATIVE Urine Blood NEGATIVE Urine Nitrate NEGATIVE Urine Bilirubin NEGATIVE Urine Urobilinogen 0.2 Ur Leukocyte Esterase NEGATIVE Urine RBC NONE SEEN Urine WBC NONE SEEN Ur Epithelial Cells NONE SEEN Urine Bacteria NONE SEEN - Radiology Results Results: chest x-ray = nad - EKG Interpretations EKG Time:: 10:21 Rate & Rhythm: rate =52, sinus mallory [place]: right axis ED Assessment - Assessment General Assessment: symptomatic bradycardia ED Septic Shock - . Is Septic Shock (SBP<90, OR Lactate>4 mmol\L) present?: No - <6hrs of presentation: Vital Signs: Vital Signs - 8 hr 12/21/18 10:17 Temp 97.5 F HR 55 RR 17 BP 146/64 O2 Sat % 98 ED Reassessment (Disposition) - Reassessment Reassessment Condition:: Unchanged - Diagnosis Diagnosis:: bradycardia - Patient Disposition Discharge/Transfer:: Acute Care w/in this hosp Admitted to:: Telemetry Condition at Disposition:: Stable
[2018-12-21 11:21] LABS: INR 0.96 (0.5-1.4)
[2018-12-21 11:25] LABS: BAND NEUTROPHILE 0 % (0-10); LYMPHOCYTE 35 % (20-50); MONOCYTE 7 % (2-10); NEUTROPHILS 50 % (40-80)
[2018-12-21 11:26] LABS: BASOPHIL 0 % (0-3); EOSINOPHIL 8 % (0-5); PLATELET ESTIMATE ADEQUATE (NORMAL)
[2018-12-21 11:33] LABS: URINE SOURCE CLEAN C
[2018-12-21 11:35] LABS: URINE BILIRUBIN NEGATIVE (NEGATIVE); URINE BLOOD NEGATIVE (NEGATIVE); URINE GLUCOSE (UA) NEGATIVE (NEGATIVE); URINE KETONE NEGATIVE (NEGATIVE); URINE LEUKOCYTE ESTERASE NEGATIVE (NEGATIVE); URINE NITRATE NEGATIVE (NEGATIVE); URINE PH 6.5 (4.6 - 8.0); URINE PROTEIN NEGATIVE (NEGATIVE); URINE UROBILINOGEN 0.2 E.U./dL (0.2 - 1.0)
[2018-12-21 11:35] LABS: CHOLESTEROL 194 mg/dL (<200); HDL -HIGH DENSITY LIPOPROTEIN 59 mg/dL (23-92); TRIGLYCERIDES 89 mg/dL (<150)
[2018-12-21 11:39] LABS: URINE CLARITY CLEAR (CLEAR); URINE COLOR YELLOW
[2018-12-21 11:40] LABS: URINE MICROSCOPIC INDICATED? YES
[2018-12-21 11:42] LABS: URINE BACTERIA NONE SEEN /hpf (NONE SEEN); URINE EPITHELIAL CELLS NONE SEEN /lpf (FEW); URINE RBC NONE SEEN /hpf (0-5); URINE WBC NONE SEEN /hpf (0-5)
--- NOTE | 2018-12-22 09:01 | Diagnostic Imaging Report ---
CT scan of the abdomen and pelvis without intravenous contrast History: Pain Total DLP equals 574 CTDI equals 10.4 Axial sections were obtained from the xiphoid process down to the pubic symphysis. The liver demonstrates a normal size and contour. No focal lesions are seen. The spleen appears normal. No abnormalities are seen in the region of the pancreas. The kidneys appear normal bilaterally. The exam of the pelvis demonstrates preservation of normal fat planes. No abnormal soft tissue masses. No abnormal fluid collections. Impression: No acute abnormalities
--- NOTE | 2018-12-22 09:01 | Diagnostic Imaging Report ---
CT scan of the brain without intravenous contrast HISTORY: Stroke, CVA Total DLP equals 714 CTDI equals 38.0 Axial sections were obtained from the base of skull to vertex. There is a prominent ventricular system size along with enlargement of cerebral sulci and subarachnoid cisterns reflecting atrophy. No acute parenchymal abnormalities. No intracerebral hemorrhage. No mass effect or shift of midline structures. No extra-axial masses or abnormal fluid collections. IMPRESSION: 1. No acute abnormalities 2. Cerebral atrophy
--- NOTE | 2018-12-22 09:06 | Diagnostic Imaging Report ---
Portable chest x-ray History: Pain Allowing for portable technique the heart size is normal. Faint streaky density noted in the right upper lobe unchanged from May 01, 2018. Findings consistent with a chronic etiology. No acute pulmonary parenchymal processes. No hilar or mediastinal abnormalities. Impression: No acute abnormalities.
== END 2018-12-21 14:45 | disposition left against medical advice (07) | DRG 310 ==
LOC: ER 10:06 → TELE 13:20
PROVIDERS: ADMIT Internal Medicine; ATTEND Internal Medicine
DX: R00.1 Bradycardia, unspecified (principal); Z88.0 Allergy status to penicillin
CPT/HCPCS: 36415-UA; 70450-TC; 71045-TC; 80053-TC; 80061-TC; 81001-TC; 83605; 84443-TC; 84484-TC; 85007-TC; 85025-TC; 85610-TC; 85730-TC